=== PATIENT | female | born 1990 | race Caucasian/White ===

== ENCOUNTER 2016-11-20 19:53 | Emergency (ER) | payer OTHER ==
[2016-11-20 20:07] VITALS: BP 112/72
[2016-11-20 20:25] LABS: BILIRUBIN,URINE NEGATIVE (NEGATIVE)
[2016-11-20 20:29] LABS: UA w/ MICROSCOPIC CHARGE YES
[2016-11-20 20:30] LABS: HCG UR QUAL NEGATIVE
[2016-11-20 20:37] LABS: UR CULTURE IF IND INDICATED; WBC,URINE >25 /HPF (0-5)
[2016-11-20] MEDS ORDERED: PHENAZOPYRIDINE 100 MG TABLET PO STA (20:57)
[2016-11-20] MEDS ORDERED: NITROFURANTOIN MACRO 100 MG CAPSULE PO STA (20:57)
[2016-11-20] MEDS ORDERED: PHENAZOPYRIDINE 100 MG TABLET PO ONE (21:00)
[2016-11-20] MEDS ORDERED: NITROFURANTOIN MACRO 100 MG CAPSULE PO ONE (21:00)
--- NOTE | 2016-11-20 21:01 | ED Physician Documentation ---
PD HPI FEMALE - Stated complaint Stated Complaint: FEMALE - Chief complaint Chief Complaint: Abd Pain - History obtained from History obtained from: Patient - History of Present Illness Timing - onset: Yesterday Timing - duration: Days (1) Timing - details: Gradual onset Pain level max: 3 Pain level max: 3 Associated symptoms: Vaginal bleeding (states ending her menses). No: Fever, Chest/shoulder pain, Abdominal pain, Back pain, Pelvic pain, Vaginal pain, Vaginal discharge, Genital sore/lesion, Dysuria, Urinary frequency, Hematuria Contributing factors: No: Review of Systems Constitutional: denies: Fever GI: denies: Abdominal Pain, Nausea, Vomiting, Diarrhea : reports: Other (no changes in sexual partners). denies: Discharge, Now EGA Skin: denies: Rash PD PAST MEDICAL HISTORY - Past Medical History Past Medical History: No - Past Surgical History Past Surgical History: No - Present Medications Home Medications: Ambulatory Orders Medication Instructions Recorded Confirmed Norethindrone 0.35 mg PO DAILY 05/09/15 11/20/16 Nitrofurantoin Monohyd/M-Cryst 100 mg PO BID 5 Days 11/20/16 [Macrobid 100 mg Capsule] Phenazopyridine HCl [Pyridium] 200 mg PO TID PRN #6 tablet 11/20/16 - Allergies Allergies/Adverse Reactions: Allergies Allergy/AdvReac Type Severity Reaction Status Date / Time No Known Drug Allergies Allergy Verified 11/20/16 20:05 - Social History Does the pt smoke?: No Smoking Status: Never smoker Does the pt drink ETOH?: No Does the pt have substance abuse?: No - Immunizations Immunizations are current?: Yes - POLST Patient has POLST: No PD ED PE NORMAL - Vitals Vital signs reviewed: Yes - General General: Alert and oriented X 3, No acute distress - HEENT HEENT: Moist mucous membranes - Respiratory Respiratory: No respiratory distress - Abdomen Abdomen: Soft, Non tender - Female Female : Pt declined - Back Back: No CVA TTP - Derm Derm: Warm and dry - Neuro Neuro: Alert and oriented X 3 - Psych Psych: Normal mood Results - Vitals Vitals: Oxygen O2 Source Room air - Labs Labs: Microbiology 11/20/16 20:15 Urine Culture - Preliminary Urine,Clean Catch Laboratory Tests 11/20/16 11/20/16 20:15 20:15 Urine Color YELLOW Urine Clarity CLEAR Urine pH 6.0 Ur Specific [place] 1.025 1.025 Urine Protein TRACE Urine Glucose (UA) NEGATIVE Urine Ketones NEGATIVE Urine Occult Blood LARGE H Urine Nitrite NEGATIVE Urine Bilirubin NEGATIVE Urine Urobilinogen 0.2 (NORMAL) Ur Leukocyte Esterase TRACE H Urine RBC 11-25 H Urine WBC >25 H Ur Squamous Epith Cells RARE Squamous Urine Bacteria Few Urine Yeast PRESENT Ur Microscopic Review INDICATED Urine Culture Comments INDICATED Urine HCG, Qual NEGATIVE PD MEDICAL DECISION MAKING - ED course Complexity details: considered differential, d/w patient ED course: Patient presents to the emergency department what appears to be a UTI. She is very well-appearing, nontoxic. Afebrile. No evidence of pyelonephritis. No evidence of STD. Declines pelvic exam. Will place on antibiotics for home and follow-up with her doctor. Patient counseled regarding signs and symptoms for which I believe and urgent re-evaluation would be necessary. Patient with good understanding of and agreement to plan and is comfortable going home at this time This document was made in part using voice recognition software. While efforts are made to proofread this document, sound alike and grammatical errors may occur. Departure - Departure Disposition: 01 Home, Self Care Clinical Impression: UTI (urinary tract infection) Qualifiers: Urinary tract infection type: acute cystitis Hematuria presence: with hematuria Qualified Code(s): N30.01 - Acute cystitis with hematuria Condition: Good Instructions: ED UTI Cystitis Female Follow-Up: your,doctor in 1 week if not better [Other] Prescriptions: Nitrofurantoin Monohyd/M-Cryst [Macrobid 100 mg Capsule] 100 mg PO BID 5 Days Phenazopyridine HCl [Pyridium] 200 mg PO TID PRN #6 tablet PRN Reason: dysuria Comments: Return if you worsen. Take all antibiotics until gone. Discharge Date/Time: 11/20/16 21:07
== END 2016-11-20 21:07 | disposition home or self-care (01) ==
LOC: ED 19:53
DX: N30.01 Acute cystitis with hematuria (principal)
CPT/HCPCS: 81001; 81025; 87077; 87086; 87181; 99282; 99283; A9270; 81003

== ENCOUNTER 2017-03-26 18:58 | Emergency (ER) | payer OTHER, MEDICAID ==
[2017-03-26 19:40] LABS: BILIRUBIN,URINE NEGATIVE (NEGATIVE)
[2017-03-26 19:43] LABS: UA w/ MICROSCOPIC CHARGE YES
[2017-03-26 19:44] LABS: HCG UR QUAL POSITIVE
--- NOTE | 2017-03-26 19:49 | ED Physician Documentation ---
PD HPI FEMALE - Stated complaint Stated Complaint: FEMALE - Chief complaint Chief Complaint: Back Pain - History obtained from History obtained from: Patient - History of Present Illness Timing - onset: Other (This is a 013, She had a medical from [facility] on February 11, she was at 8 weeks gestation at the time. It was a 2 dose regimen, so I presume mifepristone and misoprostol. She had persistent spotting ever since, but over the last couple of days has had heavier bleeding than normal menses. She also pulled her back today while lifting up her 8-year-old, but the pain is mild and controlled by ibuprofen. There is no weakness, numbness, or tingling in the saddle area or legs.) Review of Systems Ten Systems: 10 systems reviewed and negative Constitutional: denies: Fever, Chills Throat: reports: Reviewed and negative Cardiac: reports: Reviewed and negative Respiratory: reports: Reviewed and negative PD PAST MEDICAL HISTORY - Past Medical History Past Medical History: No - Past Surgical History Past Surgical History: No - Present Medications Home Medications: Ambulatory Orders Medication Instructions Recorded Confirmed No Known Home Medications [No 03/26/17 03/26/17 Known Home Medications] - Allergies Allergies/Adverse Reactions: Allergies Allergy/AdvReac Type Severity Reaction Status Date / Time clindamycin Allergy Rash Verified 03/26/17 19:10 - Social History Does the pt smoke?: No Smoking Status: Never smoker Does the pt drink ETOH?: No Does the pt have substance abuse?: No - Immunizations Immunizations are current?: Yes - POLST Patient has POLST: No PD ED PE NORMAL - Vitals Vital signs reviewed: Yes - General General: Alert and oriented X 3, No acute distress - Abdomen Abdomen: Soft, Non tender - Back Back: No CVA TTP, No spinal TTP - Extremities Extremities: No edema, No calf tenderness / cord - Neuro Neuro: Alert and oriented X 3, Normal speech Results - Vitals Vitals: Vital Signs - 24 hr 03/26/17 19:07 Temperature 36.4 C L Heart Rate 83 Respiratory 16 Rate Blood Pressure 107/77 O2 Saturation 100 Oxygen O2 Source Room air - Labs Labs: Laboratory Tests 03/26/17 03/26/17 03/26/17 19:15 20:04 20:04 WBC 5.7 RBC 4.86 Hgb 13.4 Hct 40.1 MCV 82.5 MCH 27.7 MCHC 33.5 RDW 13.3 Plt Count 209 MPV 7.3 L Neut # 3.1 Lymph # 1.9 [place] # 0.5 Eos # 0.1 Baso # 0.0 Absolute Nucleated RBC 0.00 Nucleated RBC % 0.1 Sodium Potassium Chloride Carbon Dioxide Anion Gap BUN Creatinine Estimated GFR (MDRD) Glucose Calcium HCG, Quant Urine Color YELLOW Urine Clarity HAZY Urine pH 6.0 Ur Specific [place] >=1.030 H Urine Protein NEGATIVE Urine Glucose (UA) NEGATIVE Urine Ketones NEGATIVE Urine Occult Blood LARGE H Urine Nitrite NEGATIVE Urine Bilirubin NEGATIVE Urine Urobilinogen 0.2 (NORMAL) Ur Leukocyte Esterase NEGATIVE Urine RBC TNTC H Urine WBC 0-3 Ur Squamous Epith Cells RARE Squamous Urine Bacteria None Seen Urine Mucus Moderate Strands Ur Microscopic Review INDICATED Urine Culture Comments NOT INDICATED Urine HCG, Qual POSITIVE Blood Type A POSITIVE 03/26/17 03/26/17 20:04 20:04 WBC RBC Hgb Hct MCV MCH MCHC RDW Plt Count MPV Neut # Lymph # Nolan # Eos # Baso # Absolute Nucleated RBC Nucleated RBC % Sodium 136 Potassium 3.8 Chloride 106 Carbon Dioxide 25 Anion Gap 5.0 L BUN 10 Creatinine 0.6 Estimated GFR (MDRD) 119 Glucose 103 H Calcium 8.8 HCG, Quant 225.16 Urine Color Urine Clarity Urine pH Ur Specific [place] Urine Protein Urine Glucose (UA) Urine Ketones Urine Occult Blood Urine Nitrite Urine Bilirubin Urine Urobilinogen Ur Leukocyte Esterase Urine RBC Urine WBC Ur Squamous Epith Cells Urine Bacteria Urine Mucus Ur Microscopic Review Urine Culture Comments Urine HCG, Qual Blood Type - Rads (name of study) Pelvic sono Radiology: Prelim report reviewed, Discussed with rads, See rad report (C/W reatined POC) PD MEDICAL DECISION MAKING - ED course ED course: 26-year-old woman with retained products of conception 1-1/2 months after medical . Case discussed by phone with Dr. Tavarez, the on-call OB who recommended me is a process all 800 mcg transbuccal he again. Patient will follow up with Dr. Tavarez if unsuccessful. Departure - Departure Disposition: 01 Home, Self Care Clinical Impression: Missed Condition: Good Record reviewed to determine appropriate education?: Yes Instructions: ED Miscarriage Incom Follow-Up: Sherin Tavarez DO [Provider Admit Priv/Credential] - Within 3 Days Comments: Call your doctor to arrange a follow-up appointment, make the next available appointment. In the interim, return anytime if worse or if new symptoms develop.
[2017-03-26 20:00] LABS: WBC,URINE 0-3 /HPF (0-5)
[2017-03-26 20:01] LABS: UR CULTURE IF IND NOT INDICATED
[2017-03-26 20:26] LABS: BASOPHILS % (AUTO) 0.4 %; CALCIUM 8.8 mg/dL (8.5-10.3); CREATININE 0.6 mg/dL (0.4-1.0); EOSINOPHILS # (AUTO) 0.1 10^3/uL (0.0-0.7); EOSINOPHILS % (AUTO) 1.5 %; HCT - HEMATOCRIT 40.1 % (37.0-47.0); HGB - HEMOGLOBIN 13.4 g/dL (12.0-16.0); LYMPHOCYTES # (AUTO) 1.9 10^3/uL (1.5-3.5); LYMPHOCYTES % (AUTO) 33.8 %; MEAN CORPUSCULAR HEMOGLOBIN 27.7 pg (27.0-31.0); MEAN CORPUSCULAR HGB CONC 33.5 g/dL (32.0-36.0); MEAN CORPUSCULAR VOLUME 82.5 fL (81.0-99.0); MEAN PLATELET VOLUME 7.3 fL (7.9-10.8); MONOCYTES # (AUTO) 0.5 10^3/uL (0.0-1.0); MONOCYTES % (AUTO) 9.1 %; NEUTROPHILS # (AUTO) 3.1 10^3/uL (1.5-6.6); NEUTROPHILS % (AUTO) 55.2 %; NUCLEATED RED BLOOD CELLS AUTO 0.1 /100WBC; POTASSIUM 3.8 mmol/L (3.5-5.0); RED BLOOD COUNT 4.86 10^6/uL (4.20-5.40); RED CELL DISTRIBUTION WIDTH 13.3 % (12.0-15.0); UNCORRECTED WHITE BLOOD COUNT 5.7 x10^3/uL; WHITE BLOOD COUNT 5.7 x10^3/uL (4.8-10.8)
[2017-03-26] MEDS ORDERED: miSOPROStol 100 MCG TABLET BC STA (21:31)
--- NOTE | 2017-03-26 21:38 | Ultrasound Preliminary Report ---
Exam: US OB Transvaginal IMPRESSION: 1. No intrauterine gestational sac or embryo. 2. Heterogeneous masslike structure in the endometrial canal measuring 2.3 x 1.8 cm demonstrates sign ificant vascularity. Given the provided history, this is consistent with retained products of concept ion. 3. Both ovaries and adnexal are normal. RADIA The above critical findings were discussed with Clayton by Dr. Carley Beck at 21:36 hrs on 03/26. SITE ID: [id number]
--- NOTE | 2017-03-26 21:38 | Ultrasound Preliminary Report ---
Exam: US OB First Trimester IMPRESSION: 1. No intrauterine gestational sac or embryo. 2. Heterogeneous masslike structure in the endometrial canal measuring 2.3 x 1.8 cm demonstrates sign ificant vascularity. Given the provided history, this is consistent with retained products of concept ion. 3. Both ovaries and adnexal are normal. RADIA The above critical findings were discussed with Clayton by Dr. Carley Beck at 21:36 hrs on 03/26. SITE ID: [id number]
--- NOTE | 2017-03-26 21:48 | Ultrasound Report ---
EXAM: FIRST TRIMESTER OBSTETRIC ULTRASOUND (Less than 11 weeks) EXAM DATE: 03/26/2017 09:16 p.m. CLINICAL HISTORY: Continuous bleeding 1.5 months status post medical . LMP: 12/23/2016. COMPARISONS: None. TECHNIQUE: Transabdominal and transvaginal ultrasound examination with static image documentation. CLINICAL DATES: EGA 14 weeks 2 days with LETICIA 09/22/2017 based on LMP. Per report, the patient had a medical 1.5 months ago. ASSESSMENT: Gestational Sac: None detected. Embryo: None. Cardiac activity: None. Yolk sac: None. Amniotic fluid: None. Early placenta: None. Other: None. MATERNAL STRUCTURES: Uterus: Anteverted. Heterogeneous vascular mass-like region in the endometrial canal measuring 2.3 x 1.8 cm. Blood products are present in the imaged canal. Cervix: Closed. Right Ovary/Adnexa: Unremarkable. The ovary measures 2.5 x 1.9 x 1.6 cm, volume 4 cc. Left Ovary/Adnexa: Unremarkable. The ovary measures 2.6 x 1.1 x 2.2 cm, volume 3.1 cc. Free Fluid: None. Other: None. IMPRESSION: 1. No intrauterine gestational sac or embryo. 2. Heterogeneous mass-like structure in the endometrial canal measuring 2.3 x 1.8 cm demonstrates sig nificant vascularity. Given the provided history, this is consistent with retained products of concep tion. 3. Both ovaries and adnexal are normal. RADIA The above critical findings were discussed with Zena by Dr. Carley Beck at 21:36 hrs on 7. Referring Provider Line: [phone] SITE ID: [id number]
[2017-03-26] MEDS ORDERED: miSOPROStol 200 MCG TABLET ONE (21:49)
[2017-03-26 21:58] VITALS: BP 106/78
== END 2017-03-26 21:50 | disposition home or self-care (01) ==
LOC: ED 18:58
DX: O02.1 Missed abortion (principal)
CPT/HCPCS: 36415; 76801; 76817; 80048; 81001; 81025; 84702; 85025; 86900; 86901; 99283; A9270; 81003; 87086

== ENCOUNTER 2018-05-12 18:37 | Emergency (ER) | payer OTHER, MEDICAID ==
[2018-05-12 19:50] LABS: BASOPHILS % (AUTO) 0.4 %; EOSINOPHILS # (AUTO) 0.1 10^3/uL (0.0-0.7); EOSINOPHILS % (AUTO) 0.5 %; HGB - HEMOGLOBIN 13.5 g/dL (12.0-16.0); LYMPHOCYTES # (AUTO) 2.1 10^3/uL (1.5-3.5); LYMPHOCYTES % (AUTO) 20.3 %; MEAN CORPUSCULAR HEMOGLOBIN 30.5 pg (27.0-31.0); MEAN CORPUSCULAR HGB CONC 35.2 g/dL (32.0-36.0); MEAN CORPUSCULAR VOLUME 86.6 fL (81.0-99.0); MONOCYTES # (AUTO) 0.7 10^3/uL (0.0-1.0); MONOCYTES % (AUTO) 7.2 %; NEUTROPHILS # (AUTO) 7.3 10^3/uL (1.5-6.6); NEUTROPHILS % (AUTO) 71.6 %; PLT - PLATELET COUNT 229 10^3/uL (130-450); RED BLOOD COUNT 4.43 10^6/uL (4.20-5.40); RED CELL DISTRIBUTION WIDTH 13.3 % (12.0-15.0); WHITE BLOOD COUNT 10.2 x10^3/uL (4.8-10.8)
[2018-05-12 20:04] LABS: ALBUMIN 3.1 g/dL (3.2-5.5); ALBUMIN/GLOBULIN RATIO 0.8 (1.0-2.2); BILIRUBIN,TOTAL 0.4 mg/dL (0.2-1.0); CALCIUM 9.1 mg/dL (8.5-10.3); CREATININE 0.6 mg/dL (0.4-1.0); TOTAL PROTEIN 6.9 g/dL (6.7-8.2)
--- NOTE | 2018-05-12 22:03 | ED Physician Documentation ---
PD HPI CHEST PAIN - Stated complaint Stated Complaint: CP - Chief complaint Chief Complaint: Cardiac - History obtained from History obtained from: Patient - History of Present Illness Timing - onset: How many hours ago (9) Timing - onset during: Rest Timing - duration: Seconds Timing - details: Abrupt onset, Now resolved, Intermittant Pain level max: 6 Pain level now: 0 Quality: Stabbing Location: Left chest Radiation: Other Improved by: Nothing (No) Worsened by: Other (Nothing) Associated symptoms: No: Shortness of air, Diaphoresis, Nausea, Feeling faint / dizzy, General Weakness, Palpitations, Cough Similar symptoms before: Has not had sx before Recently seen: Not recently seen - Treatment prior to arrival Treatment prior to arrival: 28-year-old female 1 month here with complaint of left-sided chest pain underneath her breasts which abruptly came at about 11:00 this morning while her and her were driving someplace. Denies associated symptoms with this.Denies any trauma, recent illness. Patient stated a couple of weeks ago she flew to [place] and returned without any Problems. Review of Systems Ten Systems: 10 systems reviewed and negative Constitutional: denies: Fever, Chills Nose: denies: Rhinorrhea / runny nose, Congestion Throat: denies: Sore throat Cardiac: reports: Chest pain / pressure. denies: Palpitations, Pedal edema, Calf pain Respiratory: denies: Dyspnea, Cough GI: denies: Abdominal Pain, Nausea, Vomiting : reports: Now [place] (1 month). denies: Dysuria, Vaginal bleeding Musculoskeletal: denies: Neck pain, Back pain, Extremity pain, Extremity swelling Neurologic: denies: Generalized weakness PD PAST MEDICAL HISTORY - Past Medical History Past Medical History: No - Past Surgical History Past Surgical History: No - Present Medications Home Medications: Ambulatory Orders Medication Instructions Recorded Confirmed No Known Home Medications 03/26/17 03/26/17 - Allergies Allergies/Adverse Reactions: Allergies Allergy/AdvReac Type Severity Reaction Status Date / Time clindamycin Allergy Rash Verified 05/12/18 18:49 - Social History Does the pt smoke?: No Smoking Status: Never smoker Does the pt drink ETOH?: No Does the pt have substance abuse?: No - Immunizations Immunizations are current?: Yes - POLST Patient has POLST: No PD ED PE NORMAL - Vitals Vital signs reviewed: Yes - General General: Alert and oriented X 3, No acute distress, Well developed/nourished - HEENT HEENT: Moist mucous membranes, Pharynx benign - Neck Neck: Supple, no meningeal sign - Cardiac Cardiac: RRR, No murmur - Respiratory Respiratory: No respiratory distress, Clear bilaterally - Abdomen Abdomen: Normal bowel sounds, Soft, Non tender, Non distended - Back Back: No CVA TTP - Derm Derm: Normal color, Warm and dry, No rash - Extremities Extremities: No deformity - Neuro Neuro: Alert and oriented X 3 - Psych Psych: Normal mood, Normal affect Results - Vitals Vitals: Vital Signs - 24 hr 05/12/18 05/12/18 18:47 20:21 Temperature 36.2 C L Heart Rate 89 89 Respiratory 16 20 Rate Blood Pressure 118/68 113/76 O2 Saturation 98 99 Oxygen O2 Source Room air - EKG (time done) 1845 Rate: Rate (enter#) Rhythm: NSR [place]: Normal Intervals: Normal CT QRS: Normal Ischemia: Normal ST segments - Labs Labs: Laboratory Tests 05/12/18 05/12/18 05/12/18 16:35 16:35 16:35 WBC 10.2 RBC 4.43 Hgb 13.5 Hct 38.4 MCV 86.6 MCH 30.5 MCHC 35.2 RDW 13.3 Plt Count 229 MPV 7.0 L Neut # (Auto) 7.3 H Lymph # (Auto) 2.1 [place] # (Auto) 0.7 Eos # (Auto) 0.1 Baso # (Auto) 0.0 Absolute Nucleated RBC 0.01 Nucleated RBC % 0.1 Sodium 137 Potassium 4.0 Chloride 103 Carbon Dioxide 24 Anion Gap 10.0 BUN 11 Creatinine 0.6 Estimated GFR (MDRD) 117 Glucose 93 Calcium 9.1 Total Bilirubin 0.4 AST 21 ALT 14 Alkaline Phosphatase 56 Troponin I < 0.04 Total Protein 6.9 Albumin 3.1 L Globulin 3.8 Albumin/Globulin Ratio 0.8 L Lipase 35 PD MEDICAL DECISION MAKING - ED course Complexity details: re-evaluated patient ([id number] spouse informed of test results. Patient denies any chest pain or shortness of breath since she got in the emergency room. They want to defer any radial logical workup including chest x-ray and CT of the chest. Patient will follow up with her OB as scheduled and will return to the ER if worse.), considered differential (Pneumonia, PE, pleurisy, muscle strain), d/w patient (2010Patient inform of workup for chest pain take Aleve for women. Patient will think about getting a chest x-ray or CTA of the chest. She wants to wait for her who is coming in and they will discuss this.), d/w family Departure - Departure Disposition: 01 Home, Self Care Clinical Impression: Atypical chest pain Condition: Good Instructions: ED Chest Pain Atypical Unkn Cause Comments: Follow-up with your OB doctor as scheduled. If worse return to the emergency room.
[2018-05-12 22:16] VITALS: BP 119/74
== END 2018-05-12 22:16 | disposition home or self-care (01) ==
LOC: ED 18:37
DX: O99.89 Other specified diseases and conditions complicating pregnancy, childbirth and the puerperium (principal); R07.89 Other chest pain; Z3A.01 Less than 8 weeks gestation of pregnancy
CPT/HCPCS: 36415; 80053; 83690; 84484; 85025; 93005; 99284